=== PATIENT | male | born 1995 | race Caucasian/White ===

== ENCOUNTER 2022-05-05 19:19 | Emergency (ER) | payer OTHER ==
[~2022-05-05 19:19] MED LIST: BACTRIM DS TAB1 EACH PO; KEFLEX CAP 500500 MG PO; LODINE CAP 300300 MG PO
[2022-05-05] MEDS ORDERED: AUGMENTIN 500-500 MG PO (19:53)
== END 2022-05-05 20:00 | disposition home or self-care (01) ==
LOC: ER1 19:19
DX: K08.89 Other specified disorders of teeth and supporting structures (principal); F17.210 Nicotine dependence, cigarettes, uncomplicated
CPT/HCPCS: 99282